=== PATIENT | female | born 1960 | race Caucasian/White ===

== ENCOUNTER → 2016-05-05 | Outpatient (CLI) | payer OTHER | LOC: GMAB 17:43 | PROVIDERS: ATTEND Family Medicine | DX: M79.641 Pain in right hand (principal) ==

== ENCOUNTER → 2016-08-05 | Outpatient (CLI) | payer OTHER, SELFPAY ==
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
== END ==
LOC: MRI 12:58
PROVIDERS: ATTEND Orthopaedic Surgery
DX: M93.272 Osteochondritis dissecans, left ankle and joints of left foot (principal)

== ENCOUNTER → 2017-03-16 | Outpatient (CLI) | payer OTHER | END | disposition home or self-care (01) | LOC: MAMMO 08:08 | PROVIDERS: ATTEND Family Medicine | DX: Z12.31 Encounter for screening mammogram for malignant neoplasm of breast (principal) | CPT/HCPCS: 77063; G0202 ==

== ENCOUNTER → 2018-03-14 | Outpatient (CLI) | payer OTHER | LOC: GMAE 11:35 | PROVIDERS: ATTEND Family Medicine | DX: R79.9 Abnormal finding of blood chemistry, unspecified (principal) ==

== ENCOUNTER → 2018-09-01 | Outpatient (CLI) | payer OTHER | LOC: GMAE 14:46 | PROVIDERS: ATTEND Family Medicine | DX: R60.0 Localized edema (principal) ==

== ENCOUNTER → 2018-09-09 | Outpatient (CLI) | payer OTHER | LOC: GMAE 10:51 | PROVIDERS: ATTEND Family Medicine | DX: R60.0 Localized edema (principal); M79.661 Pain in right lower leg; M79.662 Pain in left lower leg ==

== ENCOUNTER → 2019-03-23 | Outpatient (CLI) | payer OTHER ==
--- NOTE | 2019-03-23 17:31 | MAM ---
EXAM DESCRIPTION: 3D Screening BILATERAL : Digital Mammography. CLINICAL HISTORY: 58 years Female SCREENING . No complaints. No personal history of breast cancer. Remote family history of breast cancer. Menarche age 16. First Childbirth age 25. Postmenopausal age 32. HRT less than 5 years ago. Benign right breast biopsy. Bilateral breast augmentation.. Lifetime risk of developing breast cancer (Tyrer-Cuzick model)(%): 8.3 COMPARISON: Bilateral screening digital breast tomosynthesis with Rufino implant displacement technique 16 March 2017. TECHNIQUE: . Bilateral CC and MLO projection full-field images, with Rufino Implant Displacement digital tomosynthesis mammographic technique. Bilateral 2-D digital full-field images, MLO and CC projections, non-displaced. Bilateral digital 2-D full-field MLO images. Implant displaced CAD not available for current tomosynthesis or 2-D images. FINDINGS: The breast parenchymal density pattern is: Heterogeneously dense breast tissue, which may obscure small masses. No skin thickening or nipple retraction. Bilateral retro-muscular implants. Implant capsules are smooth where seen. Bilateral axillary lymph nodes. Bilateral solitary muscular pattern No new focal, stellate mass or density, focal asymmetry , and no suspicious microcalcifications bilaterally. Stable mammograms compared to prior study. IMPRESSION: Benign exam. BIRAD CATEGORY: 2 BENIGN FINDINGS. RECOMMENDATIONS: FOLLOW UP: Routine digital bilateral mammographic screening, one year interval from March 2019. Written communication explaining the IMPRESSION and follow-up, will be mailed to the patient and referring health care provider. According to the [employer], yearly mammograms are recommended starting at age 40 and continuing as long as a woman is in good health. Any breast change noted on a breast self-exam should be reported promptly to the patient's healthcare provider. Breast MRI is recommended for women with an approximately 20-25% or greater lifetime risk of breast cancer, including women with a strong family history of breast or ovarian cancer and women who have been treated for Hodgkin's disease. A negative mammographic report should not delay tissue diagnosis in patients with significant clinical history or physical findings. Extremely dense breast tissue limits the sensitivity of digital mammography. Electronically signed by: Filemon Adhikari MD 03/23/2019 5:29 PM ELECTRIC GAS APPLIANCES DEMONSTRATOR
== END ==
LOC: MAMMO 09:34
PROVIDERS: ATTEND Family Medicine
DX: Z12.31 Encounter for screening mammogram for malignant neoplasm of breast (principal)

== ENCOUNTER → 2019-06-14 | Outpatient (CLI) | payer OTHER ==
--- NOTE | 2019-06-14 14:15 | US ---
EXAM DESCRIPTION: Abdomen,Complete: Ultrasound. CLINICAL HISTORY: 58 years FemaleRUQ ABD PAIN COMPARISON: None Available. TECHNIQUE: Transabdominal scanning: grayscale and Doppler modes. FINDINGS: Gallbladder: Thickened wall with edema, 7.3 mm. Echogenic stone with acoustic shadowing 1.4 cm. Tender with transducer pressure. Common bile duct: 5.8 mm normal caliber. Liver: Diffuse increased echogenicity. Long axis right Lobe 15.4 cm. Physiologic vascularity with normal caliber of the ducts. Smooth capsule with no ascites. Pancreas: Normal size with increased echogenicity. Duct not seen.. Abdominal aorta: Normal caliber from the proximal segment to the distal bifurcation. IVC: visualized; normal caliber. Spleen normal echogenicity; long axis measurement is 10 cm. Right kidney: 9.6 cm Long axis with midrenal cortical thickness 1.2 mm. Normal cortical echogenicity. No echogenic stones or hydronephrosis. Left kidney: 10.2 cm long axis. Mid renal cortical thickness normal. Anterolateral cortex of the upper pole shows focal thickening and decreased echoes and minimal vascularity. This region measures 1.9 x 1.8 x 1.8 cm. No cystic component or large calcifications. No echogenic stones in the kidney and no hydronephrosis. IMPRESSION: 1. Cholelithiasis and cholecystitis with tenderness. Thickened wall with edema. Normal caliber of the duct. 2. Small focal lesion which may be solid, in the anterolateral upper cortex of the left kidney. Minimal vascularity. Maximum diameter almost 2 cm. Recommend follow-up CT scan without and with IV contrast. 3. Fatty liver but normal size. No ascites. Fatty pancreas. Normal caliber of the abdominal aorta and IVC. Negative ultrasound findings on the spleen and right kidney. CRITICAL COMMUNICATION: The critical value was discussed directly via phone by Dr. Adhikari, with Dr. Fabiano Harmon at approximately 1410 hours, on June 14, 2019. Electronically signed by: Filemon Adhikari MD 06/14/2019 2:13 PM STORAGE MANAGER
== END ==
LOC: US 12:49
PROVIDERS: ATTEND Surgery
DX: K80.00 Calculus of gallbladder with acute cholecystitis without obstruction (principal); N28.9 Disorder of kidney and ureter, unspecified; K76.0 Fatty (change of) liver, not elsewhere classified; K86.9 Disease of pancreas, unspecified

== ENCOUNTER 2019-06-15 12:00 | Day surgery (SDC) | payer OTHER ==
--- NOTE | 2019-06-15 09:10 | RAD ---
EXAM DESCRIPTION: Chest,2 Views CLINICAL HISTORY: PREOP EXAM COMPARISON: None TECHNIQUE: PA/lateral FINDINGS: Small nodules are seen in the mid and lower left lung measuring 5 mm and 6 mm. Small nodule in the lower right lung zone measures 5 mm. On the lateral view, nodular density is seen overlying the anterosuperior cardiac silhouette measuring 8 mm. With the possibility of pulmonary nodules on chest x-ray, chest CT is recommended for further evaluation. Heart size is normal with normal pulmonary vascularity. No pleural effusion or pneumothorax. No consolidating infiltrate. Lateral view shows intact sternum and T-spine. IMPRESSION: Small bilateral pulmonary nodules. Correlate with chest CT findings. Electronically signed by: Ty Ambriz MD 06/15/2019 9:08 AM OFFICE MACHINE SERVICE SUPERVISOR
[~2019-06-15 12:00] MED LIST: BUPIVACAINE 0.25% W/EPI 50 ML VIAL INJ ONE; DEXAMETHASONE INJ 10 MG/ML VIAL ONE; HEPARIN SODIUM (PORCINE) 10,000 UNITS/ML VIAL ONE; KETOROLAC TROMETHAMINE INJ 30 MG/ML VIAL ONE; LIDOCAINE 1% 10 ML VIAL INJ ONE; MAGNESIUM SULFATE INJ 1 GM/2 ML VIAL ONE; PROPOFOL 200 MG/20 ML VIAL IV ONE; SODIUM CHLORIDE 0.9% 50 ML VIAL ONE; ePHEDrine SULF 50 MG/ML ONE; raNITIdine HCL INJ 25 MG/ML VIAL ONE
[2019-06-15] MEDS ORDERED: SODIUM CHL 0.9% 100ML MINI-BAG 100 ML IVPB ONE (13:01)
[2019-06-15] MEDS ORDERED: LACTATED RINGERS 1,000 ML ONE (13:01)
[2019-06-15] MEDS ORDERED: ceFAZolin SODIUM 1 GM VIAL ONE (13:02)
[2019-06-15] MEDS ORDERED: MIDAZOLAM INJ 2 MG/2 ML VIAL ONE (13:09)
[2019-06-15] MEDS ORDERED: ROCURONIUM BROMIDE 10 MG/ML VIAL ONE (13:10)
[2019-06-15] MEDS ORDERED: fentaNYL CITRATE INJ 50 MCG/ML AMP ONE (13:10)
[2019-06-15] MEDS ORDERED: KETAMINE HCL 100 MG/ML VIAL ONE (13:15)
[2019-06-15] MEDS ORDERED: SUGAMMADEX SODIUM 200 MG/2 ML VIAL IV ONE (14:36)
[2019-06-15] MEDS ORDERED: LACTATED RINGERS 200 ML IVS ONE (15:20)
--- NOTE | 2019-06-15 15:37 | OP ---
DATE OF PROCEDURE: 06/15/19 PREOPERATIVE DIAGNOSIS: 1. Right upper quadrant pain. 2. Symptomatic cholelithiasis. 3. Fatty infiltration of the liver. POSTOPERATIVE DIAGNOSIS: 1. Right upper quadrant pain. 2. Symptomatic cholelithiasis. 3. Fatty infiltration of the liver. 4. Acute and chronic cholecystitis. PROCEDURE: 1. Laparoscopic cholecystectomy with intraoperative cholangiography using fluoroscopy. 2. Wedge biopsy, right lobe of the liver. SURGEON: Fabiano Harmon MD. COMPUTER TECH: None. ANESTHESIA: Local infiltration of 0.25% Marcaine with epinephrine and general endotracheal anesthesia. INDICATION: The patient is a 58-year-old female who has developed right upper quadrant pain associated with fatty meals. There has been no dark urine or light stools, no history of jaundice or hepatitis. She underwent an ultrasound which revealed thickened gallbladder wall with a small amount of pericholecystic fluid and gallstones with normal ducts and also consistent with fatty infiltration of the liver. The patient was brought to the Surgical Suite today for cholecystectomy after the risks, benefits and alternatives to the procedure were discussed and accepted. FINDINGS: There was a piece of what appeared to be Prolene mesh inferior to the umbilicus which was a post abdominoplasty umbilicus. There were some adhesions in the right lower quadrant. The gallbladder was thickened and distended. Intraoperative cholangiography revealed free flow into the duodenum with no filling defects or strictures noted. No other obvious pathology was identified. DESCRIPTION OF PROCEDURE: After adequate general endotracheal anesthesia was obtained, the patient was prepped and draped in the usual sterile manner. Surgical time-out was taken. The infraumbilical area was infiltrated with local anesthesia. A curvilinear incision was fashioned at the previous incision in the lower aspect of the umbilicus. Dissection was carried down using blunt dissection to what appeared to be mesh. Two traction sutures were placed on either side. A small incision was made medially. At this point, the posterior rectus sheath was divided bluntly along with the peritoneum and the Shweta trocar was introduced under direct vision into the abdominal cavity and fixed in place with the 20 mL balloon. CO2 was then insufflated until a pressure of 12 mmHg was reached and the abdomen was tympanitic in all four quadrants. When this was done, the laparoscope was introduced. The abdomen was inspected with the previously noted findings. The patient was then placed in reverse Trendelenburg position and turned to the left side. The upper abdominal ports were placed under direct vision. The gallbladder was grasped, retracted anteriorly and laterally. The neck of the gallbladder was retracted laterally. The triangle of Calot was then explored with the cystic duct and cystic artery identified and isolated. The cystic duct was hemoclipped once proximally. The cystic artery was hemoclipped twice proximally and once distally. A small incision was made in the cystic duct. The cholangiogram catheter was introduced through a separate stab wound in the right upper quadrant, introduced into the cystic duct and clipped in place. Cholangiograms were then taken using fluoroscopy which revealed free flow into the duodenum with no filling defects or strictures noted. When this was done, the cystic duct catheter was removed. The cystic duct was hemoclipped three times distally and divided between the hemoclips. The cystic artery was divided. Another arterial vessel was identified, clipped and divided. The gallbladder was easily dissected free from the gallbladder bed of the liver using electrocautery. The gallbladder was placed in an EndoCatch bag and removed from the infraumbilical port site in the usual manner under direct vision. When this was done, the subhepatic space and subphrenic space were irrigated with saline. Hemostasis was noted to be adequate. The rakel hepatis was inspected and good hemostasis was noted there and there was no bile leak identified. At this point,a wedge biopsy was performed in the anterior aspect of the right lobe of the liver just lateral to the falciform ligament. This was a wedge biopsy with scissors. Hemostasis was obtained with electrocautery turned up to 50. When hemostasis was noted to be adequate there, the specimen was removed and sent for pathological evaluation. The subhepatic space and subphrenic space were again irrigated with saline. Hemostasis was noted to be adequate. The effluent was noted to be clear. At this point, the upper abdominal ports were removed under direct vision and adequate hemostasis was noted. At this point, the CO2, the laparoscope and the infraumbilical port were removed. The infraumbilical port site fascia was closed with two [id number] sutures of 0 Prolene. Subcutaneous tissue was irrigated with saline. Skin edges were approximated with 4-0 Vicryl subcuticular sutures, benzoin and Steri-Strips. Sterile dressings were applied. The patient was awakened and taken to the Recovery Room in good and stable condition. Estimated blood loss was less than 50 mL. All sponge, needle and instrument counts were correct. #[id number]
[2019-06-15] MEDS ORDERED: HYDROcodone 5MG/APAP 325MG 1 EA TAB ONE (16:08)
[2019-06-16 09:30] VITALS: BP 126/71; TEMP 97.9; O2SAT 96
--- NOTE | 2019-06-16 11:05 | RAD ---
PROVIDED CLINICAL HISTORY/REASON FOR EXAM: IOC Findings/impression: Two intraoperative fluoroscopic images . Please see operative note Dose: Two mGy Time: 12 seconds Electronically signed by: Rangel Avila MD 06/16/2019 11:04 AM [facility]
== END 2019-06-15 17:00 | disposition home or self-care (01) ==
LOC: AMB 12:00
PROVIDERS: ATTEND Surgery
DX: K80.12 Calculus of gallbladder with acute and chronic cholecystitis without obstruction (principal); K76.0 Fatty (change of) liver, not elsewhere classified; E78.00 Pure hypercholesterolemia, unspecified; Z90.710 Acquired absence of both cervix and uterus; Z79.899 Other long term (current) drug therapy
CPT/HCPCS: 00790; 36415; 47001; 47563; 71046; 76000; 80053; 85025; 93005; A4216; J0690; J1100; J1644; J1885; J2250; J2780; J3010; J3475; J3490; J7050; J7120

== ENCOUNTER → 2020-01-04 | Outpatient (CLI) | payer OTHER ==
--- NOTE | 2020-01-04 16:36 | RAD ---
EXAM DESCRIPTION: Ankle,Left 3 Views CLINICAL HISTORY: ANKLE PAIN COMPARISON: MRI dated 05 August 2016 TECHNIQUE: 3 views left FINDINGS: A large plantar calcaneal spur is observed. Mild soft tissue swelling is observed about the ankle. The ankle mortise is intact. No fracturing is detected. IMPRESSION: Soft tissue swelling is observed. No fracturing is detected. Electronically signed by: Pierce Ronquillo MD 01/04/2020 4:34 PM CDT
== END ==
LOC: RAD 07:49
PROVIDERS: ATTEND Orthopaedic Surgery
DX: M25.572 Pain in left ankle and joints of left foot (principal); M79.9 Soft tissue disorder, unspecified

== ENCOUNTER → 2020-01-12 | Outpatient (CLI) | payer OTHER ==
--- NOTE | 2020-01-14 09:12 | MRI ---
EXAM DESCRIPTION: MRI left ankle CLINICAL HISTORY: Peroneal tendinitis. Lateral sided pain. Injury approximately 5 years ago COMPARISON: None. TECHNIQUE: Multiplanar, multisequence MR images of the left ankle FINDINGS: Minimal common peroneal tendon sheath effusion. Severe interstitial longitudinal split tear of the peroneus brevis tendon from the retromalleolar fibula to the distal insertion. Peroneus longus tendinosis and low-grade interstitial partial tear between the peroneal tubercle and cuboid Flexor digitorum and flexor hallux tendons are intact. Insertional tendinosis of the posterior tibial. Attenuated calcaneonavicular ligament. No flatfoot. Mild chronic insertional Achilles tendinosis. Large well-corticated plantar calcaneal spur with chronic middle bundle plantar fascial thickening. No acute fascial or bony abnormality Attenuated anterior talofibular ligament likely remote injury. No acute ankle ligament injury No full-thickness chondrosis/chronic osteochondral lesion of the ankle or hindfoot. Chondral thinning over the medial talar dome apex without subchondral marrow abnormality IMPRESSION: Severe long segment peroneus brevis interstitial partial tear from the retromalleolar fibula to the fifth metatarsal insertion. Peroneus longus tendinosis and low-grade interstitial partial tear over short segment between the peroneal tubercle and cuboid Posterior tibial insertional tendinosis Electronically signed by: Marcello Lozano MD 01/14/2020 9:11 AM CDT
== END ==
LOC: MRI 07:26
PROVIDERS: ATTEND Orthopaedic Surgery
DX: M76.72 Peroneal tendinitis, left leg (principal); S86.312A Strain of muscle(s) and tendon(s) of peroneal muscle group at lower leg level, left leg, initial encounter

== ENCOUNTER → 2020-03-21 | Outpatient (CLI) | payer OTHER ==
--- NOTE | 2020-03-22 11:33 | US ---
EXAM DESCRIPTION: Chest: Ultrasound. CLINICAL HISTORY: 59 yearsFemaleleft chest wall palpable mass with pain. COMPARISON: Bilateral screening digital breast tomosynthesis March 2019. TECHNIQUE: Transcutaneous scanning of the left breast and chest wall utilizing drummond-scale and Doppler modes. Scanning performed by the operater only. FINDINGS: Subcutaneous hypoechoic mass with circumscribed and lobulated margins measuring 9.2 x 5.6 x 11 millimeters. Nonvascular. Wider than tall orientation and posterior acoustic enhancement. This could represent a small abscess. IMPRESSION: Possible subcutaneous abscess versus complicated cyst. Patient recommended to have routine 1 year follow-up screening mammography if not performed at other facility since the prior study at [facility], March 2019. Electronically signed by: Filemon Adhikari MD 03/22/2020 11:32 AM MULTI SKILLED OPERATOR
== END ==
LOC: US 11:48
PROVIDERS: ATTEND Surgery
DX: R22.2 Localized swelling, mass and lump, trunk (principal)

== ENCOUNTER → 2020-04-04 | Outpatient (CLI) | payer OTHER ==
--- NOTE | 2020-04-05 16:34 | MAM ---
EXAM DESCRIPTION: 3D Screening BILATERAL : Digital Mammography. CLINICAL HISTORY: 59 years Female SCREEN . No complaints. Remote family history of breast cancer. Menarche age 18. Childbirth age unknown. Menopause age 32.. Lifetime risk of developing breast cancer (Tyrer-Cuzick model)(%): 6.5. COMPARISON: Bilateral screening digital breast tomosynthesis with Rufino implant displacement technique March 2019 and March 2017 TECHNIQUE: Bilateral CC and MLO projection full-field images, with Rufnio Implant Displacement digital tomosynthesis mammographic technique. Bilateral 2-D digital full-field images, MLO and CC projections, non-displaced. Bilateral digital 2-D full-field MLO images. With implants displaced. CAD available for 2-D images. FINDINGS: The breast parenchymal density pattern is: Heterogeneously dense breast tissue, which may obscure small masses. Axillary nodes. Bilateral intramuscular implants. Minimal folding bilaterally. Capsules appear intact where seen. Stable circumscribed densities posterior right breast. No skin thickening or nipple retraction No new focal, stellate mass or density, focal asymmetry , and no suspicious microcalcifications bilaterally. Stable mammograms compared to prior study. IMPRESSION: Benign exam. BIRAD CATEGORY: 2 BENIGN FINDINGS. RECOMMENDATIONS: FOLLOW UP: Routine digital bilateral mammographic screening, one year interval from April 2020. Written communication explaining the IMPRESSION and follow-up, will be mailed to the patient and referring health care provider. According to the [employer], yearly mammograms are recommended starting at age 40 and continuing as long as a woman is in good health. Any breast change noted on a breast self-exam should be reported promptly to the patient's healthcare provider. Breast MRI is recommended for women with an approximately 20-25% or greater lifetime risk of breast cancer, including women with a strong family history of breast or ovarian cancer and women who have been treated for Hodgkin's disease. A negative mammographic report should not delay tissue diagnosis in patients with significant clinical history or physical findings. Extremely dense breast tissue limits the sensitivity of digital mammography. Electronically signed by: Filemon Adhikari MD 04/05/2020 4:32 PM CIRCULAR SAW EDGE FUSER
== END ==
LOC: MAMMO 07:45
PROVIDERS: ATTEND Family Medicine
DX: Z12.31 Encounter for screening mammogram for malignant neoplasm of breast (principal)

== ENCOUNTER → 2020-04-12 | Outpatient (CLI) | payer OTHER | LOC: GMAE 11:29 | PROVIDERS: ATTEND Family Medicine | DX: I10 Essential (primary) hypertension (principal); R73.03 Prediabetes; E78.2 Mixed hyperlipidemia ==